=== PATIENT | male | born 1965 | race Caucasian/White ===

== ENCOUNTER 2017-04-06 07:30 | Emergency (ER) | payer OTHER ==
[~2017-04-06] VITALS: Ht 185.4 cm; Wt 99.8 kg
[2017-04-06 07:46] VITALS: BP 126/81
[2017-04-06] MEDS ORDERED: FLUOXETINE HCL10 MG ORAL (07:52)
[2017-04-06 07:57] VITALS: BP 126/81
[2017-04-06] MEDS ORDERED: AMOXICILLIN500 MG ORAL (07:57)
--- NOTE | 2017-04-06 09:16 | Emergency Room Report ---
History of Present Illness General Chief Complaint: Edema Source: Patient Present Illness HPI 51-year-old M presents ED with swelling to his left side of face. States he noticed the swelling last night. His thought he may be allergic reaction given Benadryl. Patient woke up this morning and saw no improvement. Patient denies any pain. Denies any known food or drug allergies. States he has had a lot of dental work in the past. Denies any fevers or chills. Denies tongue swelling or throat swelling. No other aggravating or relieving factors. Denies any other associated symptom Allergies: Coded Allergies: No Known Allergies (Unverified , 04/06/17) Patient History Past Medical History: psych hx Past Surgical History: none Pertinent Family History: none Social History: Denies: alcohol use, drug use, smoking Immunizations: UTD Reviewed Nursing Documentation: PMH: Agreed, PSxH: Agreed Nursing Documentation-PMH History Of Psychiatric Problem: Yes - ANXIETY Review of Systems All Other Systems: negative except mentioned in HPI Physical Exam Vital Signs Date Time Temp Pulse Resp B/P Pulse Ox O2 Delivery O2 Flow Rate FiO2 04/06/17 07:41 97.9 76 20 126/81 100 Room Air Sp02 EP Interpretation: reviewed, normal General Appearance: no apparent distress, alert, GCS 15, non-toxic Head: normocephalic, other - swelling noted to L side of face above lips. no fluctuance or discharge Eyes: bilateral eye PERRL, bilateral eye normal inspection ENT: hearing grossly normal, normal pharynx, no angioedema, normal voice, other - multiple dental caries Neck: full range of motion, supple/symm/no masses Respiratory: chest non-tender, lungs clear, normal breath sounds, speaking full sentences Cardiovascular #1: regular rate, rhythm, no edema Cardiovascular #2: 2+ carotid (R), 2+ carotid (L), 2+ radial (R), 2+ radial (L) , 2+ dorsalis pedis (R), 2+ dorsalis pedis (L) Gastrointestinal: normal bowel sounds, non tender, soft, non-distended, no guarding, no rebound Rectal: deferred Genitourinary: normal inspection, no CVA tenderness Musculoskeletal: back normal, gait/station normal, normal range of motion, non- tender Neurologic: alert, oriented x3, responsive, motor strength/tone normal, sensory intact, speech normal Psychiatric: judgement/insight normal, memory normal, mood/affect normal, no suicidal/homicidal ideation Reflexes: 3+ bicep (R), 3+ bicep (L), 3+ tricep (R), 3+ tricep (L), 3+ knee (R) , 3+ knee (L) Skin: normal color, no rash, warm/dry, well hydrated Lymphatic: no adenopathy Medical Decision Making Diagnostic Impression: Primary Impression: Facial cellulitis ER Course Hospital Course 51-year-old male presents to ED with swelling to L side of face Differential diagnoses include: Cellulitis, dermatitis, insect bite, abscess Clinical course Patient placed on stretcher. After initial history, physical exam reveals a male in no acute distress. On exam there is swelling to the left side of the face above the lips. On exam I can feel the area of swelling in the upper lip. no fluctuance. no disharge. non TTP. multiple dental caries but no evidence of dental abscess. Diagnosis - facial cellulitis stable and discharged to home with prescription for amoxicillin. Instructed to followup with PMD. Instructed return to ED if symptoms recur or worsen Last Vital Signs Date Time Temp Pulse Resp B/P Pulse Ox O2 Delivery O2 Flow Rate FiO2 04/06/17 07:57 97.9 76 20 126/81 100 Room Air Status: improved Disposition: HOME, SELF-CARE Condition: Stable Scripts Amoxicillin* (AMOXIL*) 500 Mg Capsule 500 MG ORAL THREE TIMES A DAY, #21 CAP Prov: CESAR HAMEED M.D. 04/06/17 Referrals: NON PHYSICIAN (PCP) Patient Instructions: Cellulitis CESAR HAMEED M.D. April 06, 2017 09:16
== END 2017-04-06 08:00 | disposition home or self-care (01) ==
LOC: EMR 07:50
DX: L03.211 Cellulitis of face (principal); F41.9 Anxiety disorder, unspecified
CPT/HCPCS: 99283

== ENCOUNTER 2017-04-13 20:21 | Emergency (ER) | payer OTHER ==
[~2017-04-13] VITALS: Ht 185.4 cm; Wt 104.3 kg
[~2017-04-13 20:21] MED LIST: AMOXICILLIN500 MG ORAL; FLUOXETINE HCL10 MG ORAL
[2017-04-13] MEDS ORDERED: LORazepam 1mg tab ORAL ONE (21:00)
[2017-04-13] MEDS ORDERED: Ampicillin/Sulbactam Sod 3 GM in NS 110 ML IVPB ONE (21:00)
[2017-04-13] MEDS ORDERED: Unasyn 3gm Inj ONE (21:06)
--- NOTE | 2017-04-13 21:19 | Emergency Room Report ---
History of Present Illness General Chief Complaint: General Complaint Source: Patient Present Illness HPI Patient 51-year-old male brought in by self after having increased right-sided facial swelling. Patient recently been seen and treated for infection with oral antibiotics.The patient had the been noted to have increased swelling to the right side of his face and previous swelling was on the left side of his face. The patient had just finished his oral antibiotics. He denied any fever he denied recent trauma. Allergies: Coded Allergies: No Known Allergies (Unverified , 04/06/17) Patient History Past Medical History: see triage record Reviewed Nursing Documentation: PMH: Agreed, PSxH: Agreed Nursing Documentation-PMH Past Medical History: No Stated History Review of Systems All Other Systems: negative except mentioned in HPI Physical Exam Vital Signs Date Time Temp Pulse Resp B/P Pulse Ox O2 Delivery O2 Flow Rate FiO2 04/13/17 20:34 97.7 96 16 120/83 98 Room Air Sp02 EP Interpretation: reviewed, normal General Appearance: normal inspection, well appearing, no apparent distress, alert, GCS 15 Head: atraumatic ENT: normal ENT inspection, hearing grossly normal, normal voice, other - swelling to right side of face near jaw,no trismus Neck: normal inspection, full range of motion, supple, no bony tend Respiratory: normal inspection, lungs clear, normal breath sounds, no respiratory distress, no retraction, no wheezing Cardiovascular #1: regular rate, rhythm, no edema Gastrointestinal: normal inspection, normal bowel sounds, non tender, soft, no guarding, no hernia Genitourinary: no CVA tenderness Musculoskeletal: normal inspection, back normal, normal range of motion Neurologic: normal inspection, alert, responsive, speech normal Psychiatric: normal inspection, judgement/insight normal, mood/affect normal Skin: normal inspection, normal color, no rash Medical Decision Making Diagnostic Impression: Primary Impression: Facial cellulitis ER Course Patient presented for facial pain. Differential diagnosis included but was not limited to trigeminal neuralgia, dental abscess, dry socket, osteomyelitis, nerve injury. A CT imaging of the facial bones was ordered due to patient's symptoms I read by radiology showed. no definite abscess. The patient given IV antibiotics. He is given prescriptions for further antibiotics and he was advised to followup with a dentist for definitive management of dental issues. Patient is advised to return if any worsening condition or if any changes in status that are concerning. Labs Test 04/13/17 21:00 White Blood Count 9.1 K/UL (4.8-10.8) Red Blood Count 4.23 M/UL (4.70-6.10) Hemoglobin 15.0 G/DL (14.2-18.0) Hematocrit 40.4 % (42.0-52.0) Mean Corpuscular Volume 95 FL (80-99) Mean Corpuscular Hemoglobin 35.4 PG (27.0-31.0) Mean Corpuscular Hemoglobin Concent 37.1 G/DL (32.0-36.0) Red Cell Distribution Width 12.2 % (11.6-14.8) Platelet Count 254 K/UL (150-450) Mean Platelet Volume 5.7 FL (6.5-10.1) Neutrophils (%) (Auto) 63.1 % (45.0-75.0) Lymphocytes (%) (Auto) 29.4 % (20.0-45.0) Monocytes (%) (Auto) 5.7 % (1.0-10.0) Eosinophils (%) (Auto) 1.2 % (0.0-3.0) Basophils (%) (Auto) 0.6 % (0.0-2.0) Sodium Level 138 mEQ/L (135-145) Potassium Level 3.9 mEQ/L (3.4-4.9) Chloride Level 97 mEQ/L (98-107) Carbon Dioxide Level 25 mEQ/L (20-30) Anion Gap 16 (5-15) Blood Urea Nitrogen 23 mg/dL (7-23) Creatinine 0.8 mg/dL (0.7-1.2) Estimat Glomerular Filtration Rate > 60 mL/min (>60) Glucose Level 128 mg/dL (74-106) Calcium Level 8.9 mg/dL (8.6-10.2) Total Bilirubin 0.2 mg/dL (0.0-1.2) Aspartate Amino Transf (AST/SGOT) 24 U/L (5-40) Alanine Aminotransferase (ALT/SGPT) 25 U/L (3-41) Alkaline Phosphatase 53 U/L (40-129) Total Protein 6.7 g/dL (6.6-8.7) Albumin 4.1 g/dL (3.5-5.2) Globulin 2.6 g/dL Albumin/Globulin Ratio 1.5 (1.0-2.7) Last Vital Signs Date Time Temp Pulse Resp B/P Pulse Ox O2 Delivery O2 Flow Rate FiO2 04/13/17 20:34 97.7 96 16 120/83 98 Room Air Status: improved Disposition: HOME, SELF-CARE Condition: Stable Scripts Amoxicillin/Potassium Clav 875-125* (AUGMENTIN 875-125 TABLET*) 1 Each Tablet 1 TAB ORAL TWICE A DAY, #14 TAB Prov: Wilfredo Gross 04/13/17 Wilfredo Gross Apr 13, 2017 21:19
[2017-04-13 21:30] LABS: BASOPHILS % (AUTO) 0.6 % (0.0-2.0); EOSINOPHILS % (AUTO) 1.2 % (0.0-3.0); LYMPHOCYTES % (AUTO) 29.4 % (20.0-45.0); MEAN CORPUSCULAR HEMOGLOBIN 35.4 PG (27.0-31.0); MEAN CORPUSCULAR HGB CONC 37.1 G/DL (32.0-36.0); MEAN CORPUSCULAR VOLUME 95 FL (80-99); MEAN PLATELET VOLUME 5.7 FL (6.5-10.1); MONOCYTES % (AUTO) 5.7 % (1.0-10.0); NEUTROPHILS % (AUTO) 63.1 % (45.0-75.0); PLATELET COUNT 254 K/UL (150-450); RED BLOOD COUNT 4.23 M/UL (4.70-6.10); RED CELL DISTRIBUTION WIDTH 12.2 % (11.6-14.8); WHITE BLOOD COUNT 9.1 K/UL (4.8-10.8)
[2017-04-13 21:39] LABS: ALANINE AMINOTRANSFERASE 25 U/L (3-41); ALBUMIN/GLOBULIN RATIO 1.5 (1.0-2.7); ANION GAP 16 (5-15); ASPARTATE AMINO TRANSFERASE 24 U/L (5-40); CALCIUM 8.9 mg/dL (8.6-10.2); CARBON DIOXIDE 25 mEQ/L (20-30); CHLORIDE 97 mEQ/L (98-107); CREATININE 0.8 mg/dL (0.7-1.2); GLOMERULAR FILTRATION RATE > 60 mL/min (>60); HEMOLYSIS 6; POTASSIUM 3.9 mEQ/L (3.4-4.9); SODIUM 138 mEQ/L (135-145); TOTAL PROTEIN 6.7 g/dL (6.6-8.7)
[2017-04-13] MEDS ORDERED: AUGMENTIN 875-1 EAC1 ORAL (23:36)
[2017-04-13 23:55] VITALS: BP 120/86
[2017-04-13 23:56] VITALS: BP 120/88
--- NOTE | 2017-04-14 10:39 | Diagnostic Imaging Report ---
Indication: Trauma Technique: Continuous helical transaxial imaging of the maxillofacial structures obtained without intravenous contrast administration. Coronal 2-D reformats were also obtained. Study obtained in a Siemens sensation [address] Total Dose length Product (DLP): [address] Dose Index Volume (CTDIvol): 28x2 mGy Comparison: None Findings: There is no evidence of an acute fracture. Paranasal sinuses and mastoids are clear. Soft tissues are unremarkable. There is soft tissue swelling over the right side of the face. There is mucosal thickening within paranasal sinuses, mild in degree. On the maxillary side there is suggestion of periapical lucencies especially posteriorly and especially on the right side. Findings suggest periodontal disease. Impression: No acute fracture identified. Sinusitis Suggestion of periodontal disease. [facility] has communicated the preliminary results to the Emergency Department. Their findings are largely concordant with this report. The CT scanner at [facility] is accredited by the [employer] and the scans are performed using dose optimization techniques as appropriate to a performed exam including Automatic Exposure control.
== END 2017-04-13 23:58 | disposition home or self-care (01) ==
LOC: EMR 21:10
DX: L03.211 Cellulitis of face (principal)
CPT/HCPCS: 36415; 70488; 80053; 85025; 96374; 99284; J0295; Q9967

== ENCOUNTER 2017-11-04 11:21 | Emergency (ER) | payer OTHER ==
[~2017-11-04] VITALS: Ht 185.4 cm; Wt 99.8 kg
[~2017-11-04 11:21] MED LIST changes: +AUGMENTIN 875-1 EAC1 ORAL
[2017-11-04] MEDS ORDERED: LORAZEPAM1 MG ORAL (11:32)
[2017-11-04] MEDS ORDERED: AUGMENTIN 875-1 EAC1 ORAL (11:51)
[2017-11-04] MEDS ORDERED: LORazepam 1mg tab ORAL ONE (12:00)
[2017-11-04] MEDS ORDERED: Dexamethasone 4mg/ml vial IM ONE (12:00)
[2017-11-04] MEDS ORDERED: Ketorolac 30mg Inj IM ONE (12:00)
--- NOTE | 2017-11-04 12:29 | Emergency Room Report ---
History of Present Illness General Chief Complaint: General Complaint Source: Patient Present Illness HPI 51-year-old male, history of facial cellulitis, the last time was 6 months ago, presenting with bilateral facial redness. Patient states that he woke up with chin and cheeks being very red, not necessarily painful. No fever no chills. No neck pain. No dental pain Allergies: Coded Allergies: No Known Allergies (Unverified , 04/06/17) Patient History Past Medical History: see triage record Past Surgical History: none Pertinent Family History: none Reviewed Nursing Documentation: PMH: Agreed, PSxH: Agreed Nursing Documentation-PMH Past Medical History: No History, Except For Review of Systems All Other Systems: negative except mentioned in HPI Physical Exam Vital Signs Date Time Temp Pulse Resp B/P (MAP) Pulse Ox O2 Delivery O2 Flow Rate FiO2 11/04/17 11:28 98.2 90 19 150/76 100 Room Air Sp02 EP Interpretation: reviewed, normal General Appearance: normal inspection, well appearing, no apparent distress, alert, GCS 15, non-toxic Head: normocephalic, atraumatic Eyes: bilateral eye normal inspection, bilateral eye PERRL, bilateral eye EOMI ENT: other - Bilateral facial erythema, nontender,+ edema of face, no neck tenderness or swelling, uvula edema, however it is midline, no lip or tongue swelling, no tongue elevation Neck: normal inspection, full range of motion, supple Respiratory: normal inspection, lungs clear, normal breath sounds, no respiratory distress, no retraction, no wheezing, speaking full sentences, chest symmetrical Cardiovascular #1: normal inspection, regular rate, rhythm, no edema, normal capillary refill Cardiovascular #2: 2+ radial (R), 2+ radial (L) Gastrointestinal: normal inspection, non tender, soft, non-distended, no guarding Genitourinary: no CVA tenderness Musculoskeletal: normal inspection, back normal, normal range of motion, non- tender Neurologic: normal inspection, alert, oriented x3, responsive, motor strength/ tone normal, sensory intact, normal gait, speech normal Psychiatric: normal inspection, judgement/insight normal, memory normal Skin: normal inspection, normal color, no rash, warm/dry, well hydrated, normal turgor Medical Decision Making Diagnostic Impression: Primary Impression: Facial cellulitis ER Course 51-year-old male with facial cellulitis DDX: Cellulitis / benign dermatitis No crepitus / pain out of proportion / rapid spreading for concern for nec fasc Plan: Toradol, Decadron anticipate discharge as patient appears well ER course: Remains nontoxic appearing. There has been no rapid spread of redness/swelling. No stridor, no wheezing, no respiratory distress Disposition: Patient is to be discharged to home on PO antibiotics. Strict precautions discussed with patients on when to return to the ED including fevers, chills, rapid spread of rash, persistent rash, extreme pain to extremity, which may indicate severe illness. Patient verbalizes understanding. Patient is instructed to follow up with primary care doctor OR come back to the ED in 48 hours for wound check. Patient agrees with plan. Please note that this Emergency Department Report was dictated using [employer] manager technology software, occasionally this can lead to erroneous entry secondary to interpretation by the dictation equipment. Last Vital Signs Date Time Temp Pulse Resp B/P (MAP) Pulse Ox O2 Delivery O2 Flow Rate FiO2 11/04/17 11:28 98.2 90 19 150/76 100 Room Air Disposition: HOME, SELF-CARE Condition: Stable Scripts Amoxicillin/Potassium Clav 875-125* (AUGMENTIN 875-125 TABLET*) 1 Each Tablet 1 TAB ORAL TWICE A DAY for 7 Days, #14 TAB 0 Refills Prov: Vincenzo Ortiz M.D. 11/04/17 Patient Instructions: Cellulitis, [id number] Vincenzo Ortiz M.D. Nov 04, 2017 12:29
[2017-11-04 12:35] VITALS: BP 134/80
== END 2017-11-04 12:35 | disposition home or self-care (01) ==
LOC: EMR 12:15
DX: L03.211 Cellulitis of face (principal)
CPT/HCPCS: 96372; 99284; J1100; J1885